=== PATIENT | female | born 1995 | race Caucasian/White ===

== ENCOUNTER 2025-04-07 08:05 | Emergency (ER) | payer MEDICAID, SELFPAY ==
[2025-04-07 08:13] VITALS: BP 125/76; PULSE 80; RESP 18; TEMP 36.9; O2SAT 98
--- NOTE | 2025-04-07 08:45 | DI.US_ITS ---
Exam(s) US OB 1ST TRIMESTER EXAM: US OB 1ST TRIMESTER CLINICAL HISTORY: SPOTTING, HX OF SUBCHORIONIC. COMPARISON: No exams were available for comparison TECHNIQUE: Transabdominal Transvaginal first trimester obstetrical ultrasound performed. FINDINGS: Sonographic images demonstrate a single intrauterine gestation. A yolk sac and pole are seen. Sonographically assessed gestational age based upon crown-rump length of 3.2 cm is: 10 weeks 1 day Estimated date of delivery based on this ultrasound is: 11/02/2025 Estimated date of delivery based upon LMP: 10/13/2025 heart rate motion is Dopplered at: 155 bpm. No free fluid identified. Both ovaries appear sonographically normal. Pelvic Measurments Uterus: 11.9 x 7.4 x 7.8 cm. Rt Ovary: The right ovary was not visualized on this examination. Lt Ovary: 2.7 x 2.8 x 1.8 cm. Heart Rate: 155BPM IMPRESSION: Single live intrauterine gestation as above. DATA REPOSITORY:
[2025-04-07 09:07] LABS: Glucose Negative (Negative)
[2025-04-07 09:48] LABS: Abs Immature Grans 0.02 10^3/uL (0.0-0.06); HCT 39.7 % (36.0-46.0); HGB 13.4 g/dL (11.2-15.7); Immature Grans % 0.3 %; MCH 29.1 pg (27.0-33.0); MCHC 33.8 % (32.0-36.0); MCV 86 fL (80-95); MPV 9.8 fL (8.0-11.0); Platelet Count 323 10^3/uL (130-400); RBC 4.61 10^6/uL (3.93-5.22); RDW 11.8 % (11.7-14.6); RDW-SD 36.6 fL; WBC 7.94 10^3/uL (4.4-10.8)
[2025-04-07 10:40] LABS: ALT 18 U/L (10-49); AST 19 U/L (<34); Albumin 4.8 g/dL (3.2-5.0); Alkaline Phosphatase 53 U/L (46-116); Anion Gap 10.6 mmol/L (3-11); BUN 8 mg/dL (9-23); Bilirubin, Total 0.6 mg/dL (0.2-1.2); CO2 23.4 mmol/L (20.0-31.0); Calcium 9.8 mg/dL (8.3-10.6); Chloride 105 mmol/L (98-107); Glucose 80 mg/dL (74-106); Potassium 3.6 mmol/L (3.5-5.1); Sodium 139 mmol/L (136-145); Total Protein 7.7 g/dL (5.7-8.2)
[2025-04-07 11:08] VITALS: BP 114/63; PULSE 78; RESP 17; O2SAT 100
--- NOTE | 2025-04-08 10:13 | ED.GENADUL_ITS ---
Discharge Plan Disposition Patient Disposition: Home Discharge Details Clinical Impression: Spotting affecting in first trimester Primary Care Provider: Vania Garcia ED Provider: Zayda Yan Discharge Instructions Instructions: Bleeding in Early ED Additional Instructions: Pelvic rest Refrain from heavy lifting Make sure you drink at least eight 8 ounce glasses of water daily and follow-up with OB, should the bleeding/pain worsen please return to the emergency department or try to see if OB can schedule an earlier appointment for you. Stand Alone Forms: Portal Information, Work Release Referrals: [facility] - [place], [place] [Provider Group] Vania Garcia [Primary Care Provider, Medicine] Discharge Data Discharge Date/Time-TO BE ENTERED AT DEPARTURE: 04/07/25 11:12 HPI General Date/Time Provider Initiated Documentation: 04/07/25 08:09 . HPI Narrative: This 29-year-old female presents approximately 10 weeks with some spotting that started this morning. Denies any trauma has had some mild cramping she is . States that she has had some pink blood when she wipes predominantly. Had a dating ultrasound performed 2 weeks ago with a normal IUP. She denies any history of miscarriage but has had prior subchorionic hemorrhage. Denies any fever or chills or trauma. Believes she is Rh+. Has an appointment with our group on April 27. General Stated Complaint: [employer] JONATHON: 3 Exam Narrative Exam Narrative: Alert and oriented 29-year-old female with no significant pelvic tenderness nontoxic in appearance. No CVA tenderness cardiac rate rhythm regular. No respiratory distress Course Vital Signs Vital signs: Vital Signs Temperature 36.9 C 04/07/25 08:13 Pulse 80 04/07/25 08:13 Respiratory Rate 18 04/07/25 08:13 Blood Pressure 125/76 04/07/25 08:13 Pulse Oximetry 98 04/07/25 08:13 Temperature 36.9 C 04/07/25 08:13 Pulse 78 04/07/25 11:08 Respiratory Rate 17 04/07/25 11:08 Blood Pressure 114/63 04/07/25 11:08 Blood Pressure Mean 80 04/07/25 11:08 Pulse Oximetry 100 04/07/25 11:08 Oxygen Delivery Method Room Air 04/07/25 11:08 Oxygen Flow Rate 0 04/07/25 11:08 Pain Level 0 04/07/25 09:32 Lab/Test Results Lab/Test Results: Laboratory Tests Range/Units 04/07/25 04/07/25 09:00 09:40 WBC (4.4-10.8) 10^3/uL 7.94 RBC (3.93-5.22) 10^6/uL 4.61 Hgb (11.2-15.7) g/dL 13.4 Hct (36.0-46.0) % 39.7 MCV (80-95) fL 86 MCH (27.0-33.0) pg 29.1 MCHC (32.0-36.0) % 33.8 RDW (11.7-14.6) % 11.8 Plt Count (130-400) 10^3/uL 323 MPV (8.0-11.0) fL 9.8 Immature Gran % % 0.3 Neutrophils % % 75.9 Lymphocytes % % 20.0 Monocytes % % 3.1 Eosinophils % % 0.4 Basophils % % 0.3 Nucleated RBC % (0.0-0.3) % 0.0 Absolute Neutrophils (1.2-6.7) 10^3/uL 6.03 Absolute Lymphocytes (1.2-3.4) 10^3/uL 1.59 Absolute Monocytes (0.1-0.8) 10^3/uL 0.25 Absolute Eosinophils (0.0-0.7) 10^3/uL 0.03 Absolute Basophils (0.0-0.2) 10^3/uL 0.02 Sodium (136-145) mmol/L 139 Potassium (3.5-5.1) mmol/L 3.6 Chloride (98-107) mmol/L 105 Carbon Dioxide (20.0-31.0) mmol/L 23.4 Anion Gap (3-11) mmol/L 10.6 BUN (9-23) mg/dL 8 L Creatinine (0.55-1.02) mg/dL 0.53 L Est GFR (CKD-EPI 2020) (mL/min/1.73m2) 135.95 Glucose (74-106) mg/dL 80 Calcium (8.3-10.6) mg/dL 9.8 Total Bilirubin (0.2-1.2) mg/dL 0.6 AST (<34) U/L 19 ALT (10-49) U/L 18 Alkaline Phosphatase (46-116) U/L 53 Total Protein (5.7-8.2) g/dL 7.7 Albumin (3.2-5.0) g/dL 4.8 HCG, Quant (1.5-4.2) mIU/mL [id number] Urine Color (Yellow) Yellow Urine Clarity (Clear) Clear Urine pH (5-8) 6.0 Ur Specific [place] (1.005-1.025) <= 1.005 Urine Protein (Neg-Trace) mg/dL Negative Urine Ketones (Negative) mg/dL Negative Urine Blood (Negative) Negative Urine Nitrite (Negative) Negative Urine Bilirubin (Negative) Negative Urine Urobilinogen (Up to 0.2) mg/dL 0.2 Ur Leukocyte Esterase (Negative) Negative Urine Glucose (Negative) mg/dL Negative ABO/Rh A Positive Medical Decision Making Results: Rh+, CBC, CMP does not show acute abnormality. hCG quant 198,000 urinalysis does not show evidence of infection or proteinuria ultrasound shows positive IUP heart rate 155 Assessment and plan: Patient presents with spotting during , no significant bleeding throughout encounter. Ultrasound and quant reassuring. IUP noted low suspicion obviously for ectopic . Remains hemodynamically stable no indication for RhoGAM. Will engage in pelvic rest, work note supplied and encouraged to call OB for early appointment as needed for this outpatient reassessment. Return precautions reviewed and patient expressed understanding PFSH All Active Problems (Updated 04/07/25 @ 11:03 by KARRIE Rome) Spotting affecting in first trimester (Acute) Social History Smoking/Tobacco Use Status: Never Smoking risk assessment performed?: Yes Alcohol Intake: never Drug use: Never Substance use type: does not use
== END 2025-04-07 11:12 | disposition home or self-care (01) ==
PROVIDERS: Emergency Provider Physician Assistant; PCP Nurse Practitioner Family
DX: O20.9 Hemorrhage in early pregnancy, unspecified (principal)
CPT/HCPCS: 99283; 99284; 80053; 86900; 86901; 76801; 81003; 84702; 85025

== ENCOUNTER 2025-04-15 12:21 | Outpatient (CLI) | payer MEDICAID, SELFPAY ==
[2025-04-15 12:48] LABS: Abs Immature Grans 0.02 10^3/uL (0.0-0.06); HCT 36.7 % (36.0-46.0); HGB 12.6 g/dL (11.2-15.7); Immature Grans % 0.2 %; MCH 30.1 pg (27.0-33.0); MCHC 34.3 % (32.0-36.0); MCV 88 fL (80-95); MPV 10.5 fL (8.0-11.0); Platelet Count 289 10^3/uL (130-400); RBC 4.18 10^6/uL (3.93-5.22); RDW 11.9 % (11.7-14.6); RDW-SD 38.5 fL; WBC 9.28 10^3/uL (4.4-10.8)
[2025-04-15 13:08] LABS: Hemoglobin A1C 5.0 % (<5.7)
[2025-04-16 09:42] LABS: HIV-1/2 Ag & Ab Screen Negative (Negative)
[2025-04-16 09:46] LABS: Hepatitis C Ab w Rflx HCV PCR Negative (Negative)
[2025-04-19 12:46] LABS: Syphilis IgG w/Reflex Nonreactive (Nonreactive)
[2025-04-20 08:45] LABS: Rubella IgG Ab (UVM) Positive (See Note)
== END 2025-04-15 12:22 | disposition home or self-care (01) ==
LOC: LBO 12:21
PROVIDERS: Advanced Practice Midwife; PCP Nurse Practitioner Family; Visit Provider Advanced Practice Midwife
DX: Z34.91 Encounter for supervision of normal pregnancy, unspecified, first trimester (principal)
CPT/HCPCS: 36415; 86787; 86803; 86850; 86900; 86901; 87340; 87389; 83036; 85025; 86762; 86780